=== PATIENT | male | born 1995 | race Caucasian/White ===

== ENCOUNTER 2018-01-09 03:52 | Inpatient (IN) | payer OTHER, SELFPAY ==
[2018-01-09 04:50] LABS: HEMATOCRIT 42.2 % (42.0-52.0); HEMOGLOBIN 14.1 g/dl (13.5-17.5); MEAN CORPUSCULAR HEMOGLOBIN 29.9 pg (27.0-33.0); MEAN CORPUSCULAR HGB CONC 33.4 g/dl (32.0-36.5); MEAN CORPUSCULAR VOLUME 89.6 fl (80.0-96.0); PLATELET COUNT, AUTOMATED 150 10^3/uL (150-450); RED BLOOD COUNT 4.71 10^6/uL (4.30-6.10); RED CELL DISTRIBUTION WIDTH 12.2 % (11.5-14.5); WHITE BLOOD COUNT 14.7 10^3/uL (4.0-10.0)
[2018-01-09 05:15] LABS: AMPHETAMINES LEVEL URINE NEGATIVE (NEGATIVE); BARBITURATES URINE NEGATIVE (NEGATIVE); BENZODIAZEPINES URINE NEGATIVE (NEGATIVE); CANNABINOIDS URINE POSITIVE (NEGATIVE); COCAINE METABOLITE URINE NEGATIVE (NEGATIVE); METHADONE URINE NEGATIVE (NEGATIVE); OPIATES URINE NEGATIVE (NEGATIVE); PHENCYCLIDINE URINE NEGATIVE (NEGATIVE)
[2018-01-09 05:22] LABS: ACETAMINOPHEN LEVEL < 2.0 UG/ML (10.0-30.0); ALBUMIN 4.1 GM/DL (3.2-5.2); ALBUMIN/GLOBULIN RATIO 1.41 (1.00-1.93); ALKALINE PHOSPHATASE 78 U/L (45-117); ALT/SGPT 35 U/L (12-78); ANION GAP 7 MEQ/L (8-16); AST/SGOT 28 U/L (7-37); BILIRUBIN,DIRECT 0.2 MG/DL (0.0-0.2); BILIRUBIN,TOTAL 0.9 MG/DL (0.2-1.0); BLOOD UREA NITROGEN 10 MG/DL (7-18); CALCIUM LEVEL 8.9 MG/DL (8.5-10.1); CARBON DIOXIDE LEVEL 28 MEQ/L (21-32); CHLORIDE LEVEL 109 MEQ/L (98-107); CREATININE FOR GFR 0.93 MG/DL (0.70-1.30); GLOMERULAR FILTRATION RATE > 60.0 (>60); GLUCOSE, FASTING 92 MG/DL (70-100); POTASSIUM SERUM 4.1 MEQ/L (3.5-5.1); SALICYLATE LEVEL 2.5 MG/DL (5.0-30.0); SODIUM LEVEL 144 MEQ/L (136-145)
[2018-01-09 05:24] LABS: ETHYL ALCOHOL (ETHANOL) < 0.003 % (0.000-0.010)
[2018-01-09] MEDS: ADACEL/BOOSTRIX VACCINE (DIPHTH/PERTUSS/ACELL/TETANUS)0.5ML SYR (90715) IM (05:38)
[2018-01-09] MEDS ORDERED: MOM 30ML SUSPENSION UDC PO (06:30)
[2018-01-09] MEDS ORDERED: MAALOX 30 ML SUSP *UDC PO (06:30)
[2018-01-09] MEDS: SERTRALINE HCL 50 MG TAB PO (10:27)
[2018-01-09] MEDS: NICOTINE 21MG/24HR 1 EA TRANSDERMAL TD (10:27)
[2018-01-09] MEDS: risperiDONE 0.5 MG TAB PO (10:28)
[2018-01-10 05:40] LABS: HEMOGLOBIN 15.2 g/dl (13.5-17.5); MEAN CORPUSCULAR HEMOGLOBIN 29.2 pg (27.0-33.0); MEAN CORPUSCULAR HGB CONC 32.3 g/dl (32.0-36.5); MEAN CORPUSCULAR VOLUME 90.2 fl (80.0-96.0); PLATELET COUNT, AUTOMATED 178 10^3/uL (150-450); RED BLOOD COUNT 5.21 10^6/uL (4.30-6.10); RED CELL DISTRIBUTION WIDTH 12.3 % (11.5-14.5)
[2018-01-10 05:42] LABS: ADD MANUAL DIFFER YES; DIFF SLIDE NUMBER 58; POSITIVE DIFF POS FLAG
[2018-01-10 06:31] LABS: ATYPICAL LYMPH 6 % (0-5); BASOPHILS 3 % (0-4); EOSINOPHILS 2 % (0-5); LYMPHOCYTES 37 % (16-52); MONOCYTES 7 % (0-8); NEUTROPHILS 45 % (35-75)
[2018-01-10 06:33] LABS: PLATELET ESTIMATE NORMAL (NORMAL)
[2018-01-10] MEDS: NICOTINE 21MG/24HR 1 EA TRANSDERMAL TD (09:03)
[2018-01-10] MEDS: risperiDONE 0.5 MG TAB PO (09:03)
[2018-01-10] MEDS: SERTRALINE HCL 50 MG TAB PO (09:03)
[2018-01-10] MEDS: ATOMOXETINE HCL 40 MG CAP (STRATTERA) PO (12:35)
[2018-01-11] MEDS: NICOTINE 21MG/24HR 1 EA TRANSDERMAL TD (08:47)
[2018-01-11] MEDS: SERTRALINE HCL 50 MG TAB PO (08:47)
[2018-01-11] MEDS: ATOMOXETINE HCL 40 MG CAP (STRATTERA) PO (08:47)
[2018-01-11] MEDS: risperiDONE 0.5 MG TAB PO (08:47)
[2018-01-11] MEDS: ACETAMINOPHEN TAB 650MG DOSE (2X325MG) PO (16:21)
[2018-01-11] MEDS: traZODone 50 MG TAB PO (23:04)
[2018-01-12] MEDS: SERTRALINE HCL 50 MG TAB PO (08:34)
[2018-01-12] MEDS: ATOMOXETINE HCL 40 MG CAP (STRATTERA) PO (08:34)
[2018-01-12] MEDS: risperiDONE 0.5 MG TAB PO (08:35)
[2018-01-12] MEDS: NICOTINE 21MG/24HR 1 EA TRANSDERMAL TD (08:35)
== END 2018-01-12 11:50 | disposition home or self-care (01) | DRG 754 ==
LOC: M ED 03:52 → M ED INP 06:28 → M PSY 09:00
DX: F43.21 Adjustment disorder with depressed mood (principal); R45.851 Suicidal ideations; F31.9 Bipolar disorder, unspecified; F60.9 Personality disorder, unspecified; F90.9 Attention-deficit hyperactivity disorder, unspecified type; F17.210 Nicotine dependence, cigarettes, uncomplicated; D72.829 Elevated white blood cell count, unspecified; Z91.5 Personal history of self-harm; Z79.899 Other long term (current) drug therapy